=== PATIENT | male | born 1955 | race Caucasian/White ===

== ENCOUNTER 2018-06-30 11:20 | Emergency (ER) | payer SELFPAY ==
[2018-06-30 12:09] LABS: #Basophils 0.1 thou/uL (0.0-0.2); #Eosinphils 0.4 thou/uL (0.0-0.7); #Lymphocytes 1.3 thou/uL (1.20-3.40); #Monocytes 0.8 thou/uL (0.11-0.59); #Neutrophils 5.8 thou/uL (1.40-6.50); %Basophils 1.2 % (0.0-1.0); %Lymphocytes 15.7 % (21.0-51.0); %Monocytes 9.2 % (0.0-10.0); Hemoglobin 17.4 g/dL (14.0-18.0); Mean Corpuscular HGB CONC 32.6 g/dL (32.0-36.0); Mean Corpuscular Volume 79.9 fL (78.0-98.0); Mean Platelet Volume 6.7 fL (7.4-10.4); Platelet Count 199 thou/uL (130-400); RBC Distribution Width 13.6 % (11.5-14.5); Red Blood Cell (RBC) Count 6.69 mill/uL (4.70-6.10); White Blood Cell (WBC) Count 8.4 thou/uL (4.8-10.8)
[2018-06-30 12:14] LABS: PTT 31.6 SEC (22.9-36.1); Prothrombin Time 13.7 SEC (12.0-14.7)
[2018-06-30 12:23] LABS: ALT (SGPT) 14 U/L (8-55); AST (SGOT) 15 U/L (5-34); Albumin 4.5 g/dL (3.4-4.8); Alkaline Phosphatase 84 U/L (40-150); Anion Gap 18 mmol/L (10-20); BUN (Urea Nitrogen) 23 mg/dL (8.4-25.7); Bilirubin, Total 0.4 mg/dL (0.2-1.2); CK (CPK) 56 U/L (30-200); Calc. Creatinine Clearance 0 mL/min (70-130); Carbon Dioxide 22 mmol/L (23-31); Chloride 102 mmol/L (98-107); Estimated GFR-MDRD Greater than 90; Globulin 3.1 g/dL (2.4-3.5); Glucose 132 mg/dL (80-115); Potassium 4.2 mmol/L (3.5-5.1); Protein, Total 7.6 g/dL (5.8-8.1); Sodium 138 mmol/L (136-145)
--- NOTE | 2018-06-30 12:26 | CT ---
CT Brain WO Con: 06/30/2018 12:00 PM CLINICAL HISTORY: Dizziness with history of fall. IMAGING TECHNIQUE: Multiple CT images were obtained of the brain without IV contrast. COMPARISON: None. FINDINGS: Infarct: No acute infarct evident. Hemorrhage: None. Hydrocephalus: None.. Basal cisterns: Normal. Cerebral parenchyma: Normal. Midline shift: None. Cerebellum: Normal. Brainstem: Normal. OTHER: Calvarium: Normal. Visualized Paranasal sinuses: There is mild mucosal thickening within the ethmoid air cells and right maxillary sinus. Small air-fluid level within the right maxillary sinus. Mastoid air cells are clear.. Extracranial soft tissues:Normal IMPRESSION: No acute intracranial abnormality. Mild paranasal sinus disease with a small air-fluid level within the right maxillary sinus suspicious for acute sinusitis.
--- NOTE | 2018-06-30 12:26 | RAD ---
Chest AP view INDICATION: Dizziness with a history of syncope COMPARISON: October 26, 2014 FINDINGS: Lungs:The lungs are clear Cardiac silhouette pulmonary vasculature:The cardiomediastinal silhouette appears within normal limit s. Pleural spaces:No pleural effusion or pneumothorax is demonstrated. Upper abdomen:No abnormality seen. Osseous structures: No acute osseous abnormality. Additional findings:None. IMPRESSION: No acute cardiopulmonary abnormality.
[2018-06-30] MEDS ORDERED: Aspirin Chewable 81 MG TAB ONE (13:12)
[2018-06-30] MEDS ORDERED: Acetaminophen 500 MG TAB ONE (13:32)
== END 2018-06-30 13:30 | disposition short-term general hospital (02) ==
LOC: NAV ERS 11:20
DX: R55 Syncope and collapse (principal); R94.31 Abnormal electrocardiogram [ECG] [EKG]; E11.9 Type 2 diabetes mellitus without complications; E78.5 Hyperlipidemia, unspecified; I10 Essential (primary) hypertension; F32.9 Major depressive disorder, single episode, unspecified; F17.210 Nicotine dependence, cigarettes, uncomplicated; Z79.899 Other long term (current) drug therapy; Z79.84 Long term (current) use of oral hypoglycemic drugs; Z79.82 Long term (current) use of aspirin
CPT/HCPCS: 70450; 71045; 80053; 82550; 84443; 84484; 85025; 85610; 85730; 93005

== ENCOUNTER 2020-03-05 08:55 | Emergency (ER) | payer MEDICARE, SELFPAY ==
--- NOTE | 2020-03-05 10:03 | RAD ---
EXAM: Single view of the chest HISTORY: Dyspnea COMPARISON: 06/30/2018 FINDINGS: Single view of the chest shows an enlarged cardiomediastinal silhouette. Atherosclerotic c alcifications are seen in the aorta. Increased interstitial markings are present. There appear to be superimposed airspace opacities projecting over both lower lobes. No acute osseous abnormality. IMPRESSION: 1. Bibasilar infiltrates 2. Cardiomegaly
[2020-03-05 10:06] LABS: #Basophils 0.1 thou/uL (0.0-0.2); #Eosinphils 0.1 thou/uL (0.0-0.7); #Lymphocytes 0.6 thou/uL (1.20-3.40); #Monocytes 0.9 thou/uL (0.11-0.59); #Neutrophils 8.1 thou/uL (1.40-6.50); %Basophils 0.8 % (0.0-1.0); %Eosinophils 0.6 % (0.0-10.0); %Lymphocytes 6.5 % (21.0-51.0); %Monocytes 9.4 % (0.0-10.0); %Neutrophils 82.8 % (42.0-75.0); Hemoglobin 17.2 g/dL (14.0-18.0); Mean Corpuscular HGB CONC 32.4 g/dL (32.0-36.0); Mean Corpuscular Hemoglobin 27.5 pg (27.0-31.0); Mean Corpuscular Volume 84.9 fL (78.0-98.0); Mean Platelet Volume 7.6 fL (7.4-10.4); Platelet Count 187 thou/uL (130-400); RBC Distribution Width 12.3 % (11.5-14.5); Red Blood Cell (RBC) Count 6.27 mill/uL (4.70-6.10); White Blood Cell (WBC) Count 9.7 thou/uL (4.8-10.8)
[2020-03-05 10:24] LABS: ALT (SGPT) 60 U/L (8-55); AST (SGOT) 91 U/L (5-34); Alkaline Phosphatase 111 U/L (40-110); Anion Gap 18 mmol/L (10-20); BUN (Urea Nitrogen) 16 mg/dL (8.4-25.7); Bilirubin, Total 0.7 mg/dL (0.2-1.2); Calc. Creatinine Clearance 0 mL/min (70-130); Calcium 9.6 mg/dL (7.8-10.44); Carbon Dioxide 20 mmol/L (23-31); Chloride 103 mmol/L (98-107); Potassium 4.7 mmol/L (3.5-5.1); Sodium 136 mmol/L (136-145)
[2020-03-05 10:25] LABS: Glucose 438 mg/dL (80-115)
[2020-03-05] MEDS ORDERED: Enoxaparin Sodium 80 MG/0.8 ML SYRINGE ONE (10:35)
[2020-03-05] MEDS ORDERED: Sodium Chloride 0.9% 0 ML ONE (10:35)
[2020-03-05] MEDS ORDERED: cefTRIAXone\\ROCEPHIN 2 GM VIAL ONE (10:35)
[2020-03-05] MEDS ORDERED: Azithromycin 500 MG VIAL ONE (10:35)
[2020-03-05] MEDS ORDERED: Ventolin HFA Inhaler 60 PUFF INHALER ONE (10:35)
[2020-03-05] MEDS ORDERED: Sodium Chloride 0.9% 200 ML ONE (10:36)
[2020-03-05 10:49] LABS: CKMB 44.3 ng/mL (0-6.6)
[2020-03-05] MEDS ORDERED: Metoprolol Tartrate 25 MG TAB ONE (11:23)
[2020-03-05 11:52] LABS: SARS-CoV-2 NAA Rapid Test Not Detected (NotDetected)
== END 2020-03-05 13:20 | disposition left against medical advice (07) ==
LOC: NAV ERS 08:55
DX: I21.9 Acute myocardial infarction, unspecified (principal); A41.9 Sepsis, unspecified organism; J18.9 Pneumonia, unspecified organism; Z20.822 Contact with and (suspected) exposure to COVID-19; E11.9 Type 2 diabetes mellitus without complications; E78.5 Hyperlipidemia, unspecified; I10 Essential (primary) hypertension; F17.210 Nicotine dependence, cigarettes, uncomplicated; Z79.899 Other long term (current) drug therapy
CPT/HCPCS: 0240U; 71045; 80053; 82553; 83605; 83880; 84484; 85025; 93005; 94760; 96365; 96366; 96367; 96375; 99285; J0456; J0696; J1650; J3490